=== PATIENT | female | born 1970 | race Caucasian/White ===

== ENCOUNTER → 2017-02-06 | Outpatient (CLI) | payer OTHER ==
[2017-02-06 08:58] LABS: BLOOD, URINE NEG (NEG); GLUCOSE,URINE NEG (NEG); KETONE, URINE NEG (NEG); MUCUS URINE FEW /lpf (OCC); NITRITE,URINE NEG (NEG); SQUAMOUS EPITHELIAL CELL URINE 1 /hpf (0-5); URINE COLOR LIGHT-YELLOW (YELLW/STRAW)
[2017-02-06 09:08] LABS: AUTOMATED NEUTROPHIL # 1.9 TH/MM3 (1.8-7.7); EOSINOPHIL # 0.1 TH/MM3 (0-0.4); HEMATOCRIT 38.3 % (35.0-46.0); HEMO FLAGS DIFF FINAL; LYMPH % 31.5 % (9.0-44.0); LYMPHOCYTE # 1.1 TH/MM3 (1.0-4.8); MEAN CELL VOLUME 90.3 FL (80.0-100.0); MEAN CORPUSCULAR HEMOGLOBIN 30.4 PG (27.0-34.0); MEAN CORPUSCULAR HGB CONC 33.7 % (32.0-36.0); MONO % 7.3 % (0.0-8.0); NEUT % 57.2 % (16.0-70.0); PLATELET COUNT 143 TH/MM3 (150-450); RED BLOOD COUNT 4.24 MIL/MM3 (4.00-5.30); WHITE BLOOD COUNT 3.4 TH/MM3 (4.0-11.0)
[2017-02-06 09:23] LABS: ANION GAP 5 MEQ/L (5-15); BICARBONATE 28.2 MEQ/L (21.0-32.0); CHLORIDE 104 MEQ/L (98-107); GLOMERULAR FILTRATION RATE 70 ML/MIN (>89); GLUCOSE,FASTING 85 MG/DL (74-99); POTASSIUM 4.1 MEQ/L (3.5-5.1); SODIUM (NA) 137 MEQ/L (136-145)
[2017-02-06 10:12] LABS: ALKALINE PHOSPHATASE 47 U/L (45-117); ALT (GPT) 16 U/L (10-53); HDL CHOLESTEROL 77.5 MG/DL (40.0-60.0); LDL CHOLESTEROL 76 MG/DL (0-99); TOTAL BILIRUBIN ADULT 0.7 MG/DL (0.2-1.0); TRANSFERRIN IRON PROFILE 256 MG/DL (200-360)
[2017-02-06 10:24] LABS: AST (GOT) 10 U/L (15-37); BLOOD UREA NITROGEN 20 MG/DL (7-18)
== END ==
LOC: CLAB 08:14
PROVIDERS: ATTEND Family Medicine
DX: R31.29 Other microscopic hematuria (principal)
CPT/HCPCS: 36415; 80053; 80061; 81001; 82607; 82746; 83540; 83550; 84443; 85025

== ENCOUNTER → 2017-02-15 | Outpatient (CLI) | payer OTHER ==
[2017-02-15 11:39] LABS: AUTOMATED NEUTROPHIL # 3.3 TH/MM3 (1.8-7.7); BASOPHIL % 0.9 % (0.0-2.0); EOSINOPHIL # 0.1 TH/MM3 (0-0.4); EOSINOPHIL % 1.4 % (0.0-4.0); HEMATOCRIT 37.6 % (35.0-46.0); HEMO FLAGS DIFF FINAL; LYMPH % 24.7 % (9.0-44.0); LYMPHOCYTE # 1.2 TH/MM3 (1.0-4.8); MEAN CELL VOLUME 91.9 FL (80.0-100.0); MEAN CORPUSCULAR HEMOGLOBIN 30.5 PG (27.0-34.0); MEAN CORPUSCULAR HGB CONC 33.2 % (32.0-36.0); MONO % 6.7 % (0.0-8.0); NEUT % 66.3 % (16.0-70.0); PLATELET COUNT 138 TH/MM3 (150-450); RED BLOOD COUNT 4.09 MIL/MM3 (4.00-5.30); WHITE BLOOD COUNT 4.9 TH/MM3 (4.0-11.0)
== END ==
LOC: CLAB 11:14
PROVIDERS: ATTEND Family Medicine
DX: R89.9 Unspecified abnormal finding in specimens from other organs, systems and tissues (principal); R53.83 Other fatigue
CPT/HCPCS: 36415; 85025

== ENCOUNTER 2017-05-08 07:02 | Emergency (ER) | payer OTHER ==
[~2017-05-08] VITALS: Ht 175.3 cm; Wt 50.0 kg
[2017-05-08 07:04] VITALS: BP 127/78; PULSE 66; RESP 19; TEMP 97.8; O2SAT 100
[2017-05-08] MEDS ORDERED: SODIUM CHLOR 0.9% 1000 ML INJ 1,000 ML IV SCH (07:19)
[2017-05-08 07:25] VITALS: BP 154/88; PULSE 72; RESP 16; TEMP 97.6; O2SAT 99
[2017-05-08] MEDS ORDERED: MORPHINE SULFATE 4 MG/ML INJ IV PUSH ONE ×2 (07:30→08:00)
[2017-05-08] MEDS ORDERED: ONDANSETRON HCL 4 MG/2 ML VIAL IVP ONE (07:30)
[2017-05-08] MEDS ORDERED: SODIUM CHLORIDE 0.9% FLUSH 10 ML FLUSH IV FLUSH PRN (07:30)
[2017-05-08] MEDS ORDERED: KETOROLAC TROMETHAMINE 30 MG/ML (IVP) VIAL IVP ONE (07:30)
[2017-05-08 07:41] LABS: AUTOMATED NEUTROPHIL # 4.6 TH/MM3 (1.8-7.7); BASOPHIL % 0.6 % (0.0-2.0); EOSINOPHIL # 0.1 TH/MM3 (0-0.4); EOSINOPHIL % 1.5 % (0.0-4.0); HEMATOCRIT 39.6 % (35.0-46.0); HEMO FLAGS DIFF FINAL; LYMPH % 30.8 % (9.0-44.0); LYMPHOCYTE # 2.4 TH/MM3 (1.0-4.8); MEAN CELL VOLUME 89.7 FL (80.0-100.0); MEAN CORPUSCULAR HEMOGLOBIN 30.4 PG (27.0-34.0); MEAN CORPUSCULAR HGB CONC 33.9 % (32.0-36.0); MONO % 6.8 % (0.0-8.0); NEUT % 60.3 % (16.0-70.0); PLATELET COUNT 170 TH/MM3 (150-450); RED BLOOD COUNT 4.41 MIL/MM3 (4.00-5.30); RED CELL DISTRIBUTION WIDTH 13.6 % (11.6-17.2); WHITE BLOOD COUNT 7.7 TH/MM3 (4.0-11.0)
--- NOTE | 2017-05-08 07:45 | PD ---
HPI Chief Complaint: Flank/Kidney Pain Time Seen by Provider: 07:16 Travel History International Travel<30 days: No Contact w/Intl Traveler<30days: No Traveled to known affect area: No History of Present Illness HPI So 46-year-old woman who presents to the emergency department complaining of severe right flank pain. She reports that she had a little bit of right flank pain yesterday, and this morning started to develop severe right flank pain radiating into her groin associated with a little bit of polyuria. She denies any history of previous similar symptoms. She describes the pain is excruciating and persistent. She's had salpingectomy in the past reportedly for reduce risk of ovarian CVA. She still has her ovaries. She's also had an umbilical hernia repair in the past. She has regular menstrual cycles and is due to start her period shortly. She denies any other new or worsening symptoms. History Past Medical History Medical History: Denies Significant Hx : 2 Para: 2 Social History Alcohol Use: No Tobacco Use: No Allergies-Medications (Allergen,Severity, Reaction): Coded Allergies: No Known Allergies (Verified Adverse Reaction, Unknown, 05/08/17) Reported Meds & Prescriptions Reported Meds & Active Scripts Active No Active Prescriptions or Reported Medications Review of Systems Except as stated in HPI: all other systems reviewed are Neg Physical Exam Narrative GENERAL: 46 year-old woman, writhing in the bed. In obvious pain. SKIN: Focused skin assessment warm/dry. HEAD: Atraumatic. Normocephalic. EYES: Pupils equal and round. No scleral icterus. No injection or drainage. ENT: No nasal bleeding or discharge. Mucous membranes pink and moist. NECK: Trachea midline. No JVD. CARDIOVASCULAR: Regular rate and rhythm. No murmur appreciated. RESPIRATORY: No accessory muscle use. Clear to auscultation. Breath sounds equal bilaterally. GASTROINTESTINAL: Abdomen is flat and soft. Mild diffuse more right sided tenderness but no rebound or guarding. MUSCULOSKELETAL: No obvious deformities. No edema. NEUROLOGICAL: Awake and alert. No obvious cranial nerve deficits. Motor grossly within normal limits. Normal speech. Data Data Last Documented VS Vital Signs Date Time Temp Pulse Resp B/P (MAP) Pulse Ox O2 Delivery O2 Flow Rate FiO2 05/08/17 08:33 52 18 142/77 (98) 100 Room Air 05/08/17 07:25 97.6 Orders Orders Complete Blood Count With Diff (05/08/17 07:19) Comprehensive Metabolic Panel (05/08/17 07:19) Lipase (05/08/17 07:19) Urinalysis - C+S If Indicated (05/08/17 07:19) Iv Access Insert/Monitor (05/08/17 07:19) Ecg Monitoring (05/08/17 07:19) Oximetry (05/08/17 07:19) Morphine Inj (Morphine Inj) (05/08/17 07:30) Ondansetron Inj (Zofran Inj) (05/08/17 07:30) Sodium Chlor 0.9% 1000 Ml Inj (Ns 1000 M (05/08/17 07:19) Sodium Chloride 0.9% Flush (Ns Flush) (05/08/17 07:30) Ketorolac Inj (Toradol Inj) (05/08/17 07:30) Ed Urine Pregnancytest Poc (05/08/17 07:19) Ct Abd/Pel W/O Iv Contrast (05/08/17 ) Morphine Inj (Morphine Inj) (05/08/17 08:00) Labs Laboratory Tests Test 05/08/17 07:20 05/08/17 07:25 White Blood Count 7.7 TH/MM3 Red Blood Count 4.41 MIL/MM3 Hemoglobin 13.4 GM/DL Hematocrit 39.6 % Mean Corpuscular Volume 89.7 FL Mean Corpuscular Hemoglobin 30.4 PG Mean Corpuscular Hemoglobin Concent 33.9 % Red Cell Distribution Width 13.6 % Platelet Count 170 TH/MM3 Mean Platelet Volume 9.4 FL Neutrophils (%) (Auto) 60.3 % Lymphocytes (%) (Auto) 30.8 % Monocytes (%) (Auto) 6.8 % Eosinophils (%) (Auto) 1.5 % Basophils (%) (Auto) 0.6 % Neutrophils # (Auto) 4.6 TH/MM3 Lymphocytes # (Auto) 2.4 TH/MM3 Monocytes # (Auto) 0.5 TH/MM3 Eosinophils # (Auto) 0.1 TH/MM3 Basophils # (Auto) 0.0 TH/MM3 CBC Comment DIFF FINAL Differential Comment Blood Urea Nitrogen 20 MG/DL Creatinine 1.07 MG/DL Random Glucose 142 MG/DL Total Protein 7.2 GM/DL Albumin 3.7 GM/DL Calcium Level 8.7 MG/DL Alkaline Phosphatase 46 U/L Aspartate Amino Transf (AST/SGOT) 46 U/L Alanine Aminotransferase (ALT/SGPT) 29 U/L Total Bilirubin 0.9 MG/DL Sodium Level 137 MEQ/L Potassium Level 5.3 MEQ/L Chloride Level 105 MEQ/L Carbon Dioxide Level 23.2 MEQ/L Anion Gap 9 MEQ/L Estimat Glomerular Filtration Rate 55 ML/MIN Lipase 145 U/L Urine Color YELLOW Urine Turbidity CLEAR Urine pH 6.0 Urine Specific [place] 1.027 Urine Protein 30 mg/dL Urine Glucose (UA) NEG mg/dL Urine Ketones 10 mg/dL Urine Occult Blood LARGE Urine Nitrite NEG Urine Bilirubin NEG Urine Urobilinogen LESS THAN 2.0 MG/DL Urine Leukocyte Esterase NEG Urine RBC /hpf Urine WBC 1 /hpf Urine Squamous Epithelial Cells <1 /hpf Urine Transitional Epithelial Cells <1 /hpf Urine Bacteria FEW /hpf Urine Hyaline Casts 1 /lpf Urine Mucus MANY /lpf Microscopic Urinalysis Comment CULT NOT INDICATED MDM Medical Decision Making Medical Screen Exam Complete: Yes Emergency Medical Condition: Yes Interpretation(s) LABS: CBC is unremarkable. CMP is overall unremarkable. BUN and creatinine is a little bit elevated. Elevated potassium likely due to hemolysis. UA is significant for marked hematuria CT abdomen and pelvis, 4 x 3 mm potential stone in the right pelvis. Differential Diagnosis Renal lithiasis, ovarian torsion, pyelonephritis, PID or pelvic infection, other Narrative Course Medical decision making INITIAL: 46 year-old woman riding right sided flank pain suggestive of likely renal lithiasis. Ovarian torsion could've a similar appearance. Patient looks obviously uncomfortable but nontoxic. We'll check labs, urine, imaging, reassess. Diagnosis Primary Impression: Ureterolithiasis Additional Instructions: Take Naprosyn as prescribed. Take Lortab as needed. Use Zofran if needed for nausea or vomiting. Follow-up with her primary doctor for not completely well the next 3-5 days. Return to the ER for any worsening abdominal pain, fevers, vomiting, or any other new or worsening symptoms. Med/Other Pt SpecificInfo: Prescription(s) given Scripts Ondansetron Odt (Ondansetron Odt) 4 Mg Tab 4 MG SL Q8HR Y for Nausea/Vomiting, #10 TAB 0 Refills Prov: Geoffrey Crews MD 05/08/17 Hydrocodone-Acetaminophen (Lortab) 5-325 Mg Tab 1-2 TAB PO Q6H Y for PAIN, #20 TAB 0 Refills Prov: Geoffrey Crews MD 05/08/17 Naproxen (Naproxen) 500 Mg Tab 500 MG PO BID, #20 TAB 0 Refills Prov: Geoffrey Crews MD 05/08/17 Disposition: 01 DISCHARGE HOME Condition: Stable Geoffrey Crews MD May 08, 2017 07:45
[2017-05-08 07:46] LABS: BLOOD, URINE LARGE (NEG); GLUCOSE,URINE NEG (NEG); HYALINE CAST, URINE 1 /lpf (RARE); KETONE, URINE 10 mg/dL (NEG); MUCUS URINE MANY /lpf (OCC); NITRITE,URINE NEG (NEG); SQUAMOUS EPITHELIAL CELL URINE <1 /hpf (0-5); TRANSITIONAL EPI CELLS, URINE <1 /hpf; URINE COLOR YELLOW (YELLW/STRAW)
[2017-05-08 07:48] LABS: BACTERIA, URINE FEW /hpf; COMMENT (UR) CULT NOT INDICATED; CULTURE IF INDICATED CULT NOT INDICATED
[2017-05-08 08:04] LABS: ALKALINE PHOSPHATASE 46 U/L (45-117); TOTAL BILIRUBIN ADULT 0.9 MG/DL (0.2-1.0)
[2017-05-08 08:22] LABS: ALT (GPT) 29 U/L (10-53); ANION GAP 9 MEQ/L (5-15); AST (GOT) 46 U/L (15-37); BICARBONATE 23.2 MEQ/L (21.0-32.0); BLOOD UREA NITROGEN 20 MG/DL (7-18); CHLORIDE 105 MEQ/L (98-107); GLOMERULAR FILTRATION RATE 55 ML/MIN (>89); SODIUM (NA) 137 MEQ/L (136-145)
[2017-05-08 08:24] LABS: POTASSIUM 5.3 MEQ/L (3.5-5.1)
[2017-05-08 08:33] VITALS: BP 142/77; PULSE 52; RESP 18; O2SAT 100
--- NOTE | 2017-05-08 09:16 | RADRPT ---
EXAM DATE/TIME: 05/08/2017 08:03 [facility] COMPARISON: No previous studies available for comparison. INDICATIONS : Right flank and pelvic pain for 2 days ORAL CONTRAST: No oral contrast ingested. RADIATION DOSE: 6.97 CTDIvol (mGy) MEDICAL HISTORY : None SURGICAL HISTORY : None. ENCOUNTER: Initial ACUITY: 2 days PAIN SCALE: 6/10 LOCATION: Right flank TECHNIQUE: Volumetric scanning of the abdomen and pelvis was performed. Using automated exposure control and ad justment of the mA and/or kV according to patient size, radiation dose was kept as low as reasonably achievable to obtain optimal diagnostic quality images. DICOM format image data is available electro nically for review and comparison. FINDINGS: LOWER LUNGS: The visualized lower lungs are clear. Breast implants are present. LIVER: Homogeneous density without lesion identified on this noncontrast examination. There is no dilation of the biliary tree. No calcified gallstones. SPLEEN: Normal size without lesion. PANCREAS: No definite abnormality is visualized. KIDNEYS: Normal in size and shape. There is no mass, stone, or hydronephrosis. There is a 4 x 3 mm ovoid dens ity/calcification in the right pelvis near the expected location of the distal right ureter. Given th e paucity of intra-abdominal and pelvic fat, I am unable to follow the course of the ureters. ADRENAL GLANDS: No definite abnormality is visualized. VASCULAR: There is no aortic aneurysm. BOWEL/MESENTERY: The stomach, small bowel, and colon demonstrate no acute abnormality. There is no free intraperitone al air or fluid. ABDOMINAL WALL: Within normal limits. RETROPERITONEUM: There is no lymphadenopathy. BLADDER: No wall thickening or mass. REPRODUCTIVE: Within normal limits. INGUINAL: There is no lymphadenopathy or hernia. MUSCULOSKELETAL: No acute abnormality. CONCLUSION: 1. There is a 4 x 3 mm potential stone in the right pelvis which could be within the distal right ure ter just proximal to the ureterovesical junction. No right hydronephrosis is present however. Given t he paucity of intra-abdominal and pelvic fat I am unable to visualize the ureter but the finding is s uspicious for a distal right ureteral stone. 2. No other abnormality is identified. Jace Walter MD on May 08, 2017 at 9:08 Board Certified Radiologist. This report was verified electronically.
[2017-05-08] MEDS ORDERED: ONDA4TAB7 SL (09:50)
[2017-05-08] MEDS ORDERED: NAPR500T2 PO (09:50)
[2017-05-08] MEDS ORDERED: HYDR-3533 PO (09:50)
[2017-05-08 10:16] VITALS: BP 99/51; PULSE 57; RESP 18; O2SAT 98
== END 2017-05-08 10:25 | disposition home or self-care (01) ==
LOC: NEPC 07:02
DX: N20.1 Calculus of ureter (principal)
CPT/HCPCS: 74176; 80053; 81001; 83690; 84703; 85025; 96361; 96374; 96375; 96376; 99285; J1885; J2270; J2405; J7030

== ENCOUNTER 2017-05-14 07:05 | Emergency (ER) | payer OTHER ==
[~2017-05-14] VITALS: Ht 160 cm; Wt 50.0 kg
[~2017-05-14 07:05] MED LIST: HYDR-3533 PO; NAPR500T2 PO; ONDA4TAB7 SL
[2017-05-14 07:11] VITALS: BP 156/88; PULSE 82; RESP 26; TEMP 98.4; O2SAT 98
[2017-05-14] MEDS ORDERED: SODIUM CHLOR 0.9% 1000 ML INJ 1,000 ML IV SCH (07:23)
--- NOTE | 2017-05-14 07:28 | PD ---
HPI Chief Complaint: Flank/Kidney Pain Time Seen by Provider: 07:15 Travel History International Travel<30 days: No Contact w/Intl Traveler<30days: No Traveled to known affect area: No History of Present Illness HPI The patient is a 46-year-old female who presents to the emergency department for right flank pain that is associated with nausea, vomiting, pain is starts in the right mid back and radiates to the right lower quadrant of the abdomen. The patient has similar pain one week ago was evaluated in the emergency department where she had a CT performed which revealed possible 4 x 3 mm stone in the distal right ureter. The patient's pain did improve, however, returned once again this morning. The patient is unsure if she has any hematuria and she is currently finishing her menstrual cycle, however, does note bright red blood that appears to be in the urine. She denies any vaginal discharge. She denies any fever, chills, or sweats. She does have a history of previous tubal ligation, section, and periumbilical hernia repair. She denies any vaginal discharge, dysuria, frequency, or urgency. She is unsure if she passed a stone within the last week. Symptoms are moderate, possibly exacerbated by underlying kidney stone, and there are no current alleviating factors. PFSH Past Medical History Cancer: No Cardiovascular Problems: No Diabetes: No Endocrine: No Genitourinary: No Hepatitis: No Hiatal Hernia: No Immune Disorder: No Musculoskeletal: No Neurologic: No Psychiatric: No Reproductive: No Respiratory: No Thyroid Disease: No Tetanus Vaccination: < 5 Years Influenza Vaccination: Yes ?: Not LMP: 05/09/17 : 2 Para: 2 Tubal Ligation: Yes Past Surgical History AICD: No Section: Yes Gynecologic Surgery: Yes (2 C SECTION , HERNIA REPAIR) Pacemaker: No Other Surgery: Yes (BREAST AUGMENTATION ) Social History Alcohol Use: No Tobacco Use: No Substance Use: No Allergies-Medications (Allergen,Severity, Reaction): Coded Allergies: No Known Allergies (Verified Adverse Reaction, Unknown, 05/08/17) Reported Meds & Prescriptions Reported Meds & Active Scripts Active Ondansetron Odt 4 Mg Tab 4 Mg SL Q8HR PRN Lortab (Hydrocodone-Acetaminophen) 5-325 Mg Tab 1-2 Tab PO Q6H PRN Naproxen 500 Mg Tab 500 Mg PO BID Review of Systems Except as stated in HPI: all other systems reviewed are Neg General / Constitutional: No: Fever Cardiovascular: No: Chest Pain or Discomfort Respiratory: No: Shortness of Breath Gastrointestinal: Positive: Nausea, Vomiting, Abdominal Pain, No: Diarrhea Genitourinary: Positive: Hematuria, Flank Pain Skin: No Rash Physical Exam Narrative GENERAL: Awake, alert, pleasant 46-year-old female appears her stated age and appears in moderate discomfort. SKIN: Focused skin assessment warm/dry. HEAD: Atraumatic. Normocephalic. EYES: Pupils equal and round. No scleral icterus. No injection or drainage. ENT: No nasal bleeding or discharge. Mucous membranes pink and moist. NECK: Trachea midline. No JVD. CARDIOVASCULAR: Regular rate and rhythm. No murmur appreciated. RESPIRATORY: No accessory muscle use. Clear to auscultation. Breath sounds equal bilaterally. GASTROINTESTINAL: Abdomen soft, mild suprapubic tenderness. Back: Right CVA tenderness. MUSCULOSKELETAL: No obvious deformities. No clubbing. No cyanosis. No edema. NEUROLOGICAL: Awake and alert. No obvious cranial nerve deficits. Motor grossly within normal limits. Normal speech. PSYCHIATRIC: Appropriate mood and affect; insight and judgment normal. Data Data Last Documented VS Vital Signs Date Time Temp Pulse Resp B/P (MAP) Pulse Ox O2 Delivery O2 Flow Rate FiO2 05/14/17 09:36 50 20 122/77 (92) 99 Room Air 05/14/17 07:11 98.4 Orders Orders Complete Blood Count With Diff (05/14/17 07:23) Comprehensive Metabolic Panel (05/14/17 07:23) Urinalysis - C+S If Indicated (05/14/17 07:23) Iv Access Insert/Monitor (05/14/17 07:23) Ecg Monitoring (05/14/17 07:23) Oximetry (05/14/17 07:23) Morphine Inj (Morphine Inj) (05/14/17 07:30) Ondansetron Inj (Zofran Inj) (05/14/17 07:30) Sodium Chlor 0.9% 1000 Ml Inj (Ns 1000 M (05/14/17 07:23) Sodium Chloride 0.9% Flush (Ns Flush) (05/14/17 07:30) Abdomen, Kub Only (05/14/17 07:23) Ketorolac Inj (Toradol Inj) (05/14/17 07:30) Ed Urine Pregnancytest Poc (05/14/17 07:23) Ct Abd/Pel W/O Iv Contrast (05/14/17 ) Hydromorphone Pf Inj (Dilaudid Pf Inj) (05/14/17 09:00) Ondansetron Inj (Zofran Inj) (05/14/17 09:30) Labs Laboratory Tests Test 05/14/17 07:30 White Blood Count 5.9 TH/MM3 Red Blood Count 4.27 MIL/MM3 Hemoglobin 13.1 GM/DL Hematocrit 38.6 % Mean Corpuscular Volume 90.5 FL Mean Corpuscular Hemoglobin 30.7 PG Mean Corpuscular Hemoglobin Concent 33.9 % Red Cell Distribution Width 13.6 % Platelet Count 182 TH/MM3 Mean Platelet Volume 8.9 FL Neutrophils (%) (Auto) 70.0 % Lymphocytes (%) (Auto) 20.7 % Monocytes (%) (Auto) 7.2 % Eosinophils (%) (Auto) 1.5 % Basophils (%) (Auto) 0.6 % Neutrophils # (Auto) 4.1 TH/MM3 Lymphocytes # (Auto) 1.2 TH/MM3 Monocytes # (Auto) 0.4 TH/MM3 Eosinophils # (Auto) 0.1 TH/MM3 Basophils # (Auto) 0.0 TH/MM3 CBC Comment DIFF FINAL Differential Comment Urine Color LIGHT-YELLOW Urine Turbidity CLEAR Urine pH 7.5 Urine Specific [place] 1.006 Urine Protein NEG mg/dL Urine Glucose (UA) NEG mg/dL Urine Ketones NEG mg/dL Urine Occult Blood NEG Urine Nitrite NEG Urine Bilirubin NEG Urine Urobilinogen LESS THAN 2.0 MG/DL Urine Leukocyte Esterase NEG Urine WBC LESS THAN 1 /hpf Microscopic Urinalysis Comment CULT NOT INDICATED Blood Urea Nitrogen 18 MG/DL Creatinine 1.14 MG/DL Random Glucose 98 MG/DL Total Protein 7.3 GM/DL Albumin 4.4 GM/DL Calcium Level 8.9 MG/DL Alkaline Phosphatase 47 U/L Aspartate Amino Transf (AST/SGOT) 29 U/L Alanine Aminotransferase (ALT/SGPT) 43 U/L Total Bilirubin 0.7 MG/DL Sodium Level 138 MEQ/L Potassium Level 3.9 MEQ/L Chloride Level 104 MEQ/L Carbon Dioxide Level 26.3 MEQ/L Anion Gap 8 MEQ/L Estimat Glomerular Filtration Rate 52 ML/MIN MDM Medical Decision Making Medical Screen Exam Complete: Yes Emergency Medical Condition: Yes Medical Record Reviewed: Yes Interpretation(s) KUB reveals normal examination Laboratory Tests Test 05/14/17 07:30 White Blood Count 5.9 TH/MM3 Red Blood Count 4.27 MIL/MM3 Hemoglobin 13.1 GM/DL Hematocrit 38.6 % Mean Corpuscular Volume 90.5 FL Mean Corpuscular Hemoglobin 30.7 PG Mean Corpuscular Hemoglobin Concent 33.9 % Red Cell Distribution Width 13.6 % Platelet Count 182 TH/MM3 Mean Platelet Volume 8.9 FL Neutrophils (%) (Auto) 70.0 % Lymphocytes (%) (Auto) 20.7 % Monocytes (%) (Auto) 7.2 % Eosinophils (%) (Auto) 1.5 % Basophils (%) (Auto) 0.6 % Neutrophils # (Auto) 4.1 TH/MM3 Lymphocytes # (Auto) 1.2 TH/MM3 Monocytes # (Auto) 0.4 TH/MM3 Eosinophils # (Auto) 0.1 TH/MM3 Basophils # (Auto) 0.0 TH/MM3 CBC Comment DIFF FINAL Differential Comment Urine Color LIGHT-YELLOW Urine Turbidity CLEAR Urine pH 7.5 Urine Specific [place] 1.006 Urine Protein NEG mg/dL Urine Glucose (UA) NEG mg/dL Urine Ketones NEG mg/dL Urine Occult Blood NEG Urine Nitrite NEG Urine Bilirubin NEG Urine Urobilinogen LESS THAN 2.0 MG/DL Urine Leukocyte Esterase NEG Urine WBC LESS THAN 1 /hpf Microscopic Urinalysis Comment CULT NOT INDICATED Blood Urea Nitrogen 18 MG/DL Creatinine 1.14 MG/DL Random Glucose 98 MG/DL Total Protein 7.3 GM/DL Albumin 4.4 GM/DL Calcium Level 8.9 MG/DL Alkaline Phosphatase 47 U/L Aspartate Amino Transf (AST/SGOT) 29 U/L Alanine Aminotransferase (ALT/SGPT) 43 U/L Total Bilirubin 0.7 MG/DL Sodium Level 138 MEQ/L Potassium Level 3.9 MEQ/L Chloride Level 104 MEQ/L Carbon Dioxide Level 26.3 MEQ/L Anion Gap 8 MEQ/L Estimat Glomerular Filtration Rate 52 ML/MIN Last Impressions Abdomen X-Ray 05/14/17 0716 Signed Impressions: Service Date/Time: Sunday, May 14, 2017 07:40 - CONCLUSION: Normal examination. Ish Funez Jr., MD Abdomen/Pelvis CT 05/14/17 0000 Signed Impressions: Service Date/Time: Sunday, May 14, 2017 09:03 - CONCLUSION: Probable stone distal third left ureter similar to what was seen on 05/08/17 this is not appreciated on the KUB of 05/14/17, probably obscured by bowel. Uric acid type stones were visualized by CT but not I conventional radiography. Calvin Harrison MD FACR Differential Diagnosis Differential diagnosis includes nephrolithiasis, hydronephrosis, pyelonephritis , ovarian torsion, ovarian cyst, appendicitis, diverticulitis, UTI, ectopic . Narrative Course IV was established, labs are drawn and sent, and the patient was placed on cardiac telemetry monitoring and continuous pulse oximetry monitoring. The patient was administered morphine, Zofran, Toradol, and IV fluids. UA was sent to lab and bedside UA test was obtained. I reviewed the patient's EMR , her emergency department visit on May 08, 2017 revealed a possible 4 x 3 mm stone in the distal right ureter. KUB reveals normal examination. UA was unremarkable, no evidence of hematuria. Labs are otherwise unremarkable. Bedside UA test was negative. CT the abdomen and pelvis reveals a distal third right ureter stent. The patient required a second dose of pain medications, was administered Dilaudid. The patient will be placed on Flomax, [place], and ibuprofen. She will be advised to follow-up with urology. Diagnosis Primary Impression: Nephrolithiasis Referrals: Rakesh Deng DO call for appointment Patient Instructions: General Instructions Additional Instructions: Medications as directed. Follow-up with urology. Return if symptoms worsen or progress. Med/Other Pt SpecificInfo: Prescription(s) given Scripts Tamsulosin (Flomax) 0.4 Mg Cap 0.4 MG PO HS for Manage Prostate Problems, #7 CAP 0 Refills Prov: Evgeny Umanzor MD 05/14/17 Ibuprofen (Ibuprofen) 600 Mg Tab 600 MG PO Q6H Y for Pain/Inflammation, #20 TAB 0 Refills Prov: Evgeny Umanzor MD 05/14/17 Hydrocodone-Acetaminophen ([place]) 5 Mg-325 Mg Tab 1 TAB PO Q6H Y for PAIN, #20 TAB 0 Refills Prov: Evgeny Umanzor MD 05/14/17 Disposition: 01 DISCHARGE HOME Condition: Stable Evgeny Umanzor MD May 14, 2017 07:27
[2017-05-14] MEDS ORDERED: SODIUM CHLORIDE 0.9% FLUSH 10 ML FLUSH IV FLUSH PRN (07:30)
[2017-05-14] MEDS ORDERED: KETOROLAC TROMETHAMINE 30 MG/ML (IVP) VIAL IVP ONE (07:30)
[2017-05-14] MEDS ORDERED: MORPHINE SULFATE 4 MG/ML INJ IV PUSH ONE (07:30)
[2017-05-14] MEDS ORDERED: ONDANSETRON HCL 4 MG/2 ML VIAL IVP ONE (07:30)
[2017-05-14 07:39] VITALS: O2SAT 98
[2017-05-14 07:53] LABS: BLOOD, URINE NEG (NEG); GLUCOSE,URINE NEG (NEG); KETONE, URINE NEG (NEG); NITRITE,URINE NEG (NEG); PH, URINE 7.5 (5.0-8.5); URINE COLOR LIGHT-YELLOW (YELLW/STRAW)
[2017-05-14 07:54] LABS: COMMENT (UR) CULT NOT INDICATED; CULTURE IF INDICATED CULT NOT INDICATED
--- NOTE | 2017-05-14 07:57 | RADRPT ---
EXAM DATE/TIME: 05/14/2017 07:40 [facility] COMPARISON: CT ABDOMEN & PELVIS W/O CONTRAST, May 08, 2017, 8:03. INDICATIONS : Right side kidney stone, low back pain. MEDICAL HISTORY : None. SURGICAL HISTORY : None. ENCOUNTER: Initial ACUITY: 1 week PAIN SCORE: 10/10 LOCATION: Right abdomen. FINDINGS: Supine view of the abdomen was performed. The abdominal bowel gas pattern is normal. No abnormal ma sses, calcifications, or organomegaly is seen. In particular no discernible renal or ureteral stone. The osseous structures are unremarkable. CONCLUSION: Normal examination. Ish Funez Jr., MD on May 14, 2017 at 7:53 Board Certified Radiologist. This report was verified electronically.
[2017-05-14 07:58] LABS: AUTOMATED NEUTROPHIL # 4.1 TH/MM3 (1.8-7.7); BASOPHIL % 0.6 % (0.0-2.0); EOSINOPHIL # 0.1 TH/MM3 (0-0.4); EOSINOPHIL % 1.5 % (0.0-4.0); HEMATOCRIT 38.6 % (35.0-46.0); HEMO FLAGS DIFF FINAL; LYMPH % 20.7 % (9.0-44.0); LYMPHOCYTE # 1.2 TH/MM3 (1.0-4.8); MEAN CELL VOLUME 90.5 FL (80.0-100.0); MEAN CORPUSCULAR HEMOGLOBIN 30.7 PG (27.0-34.0); MEAN CORPUSCULAR HGB CONC 33.9 % (32.0-36.0); MONO % 7.2 % (0.0-8.0); PLATELET COUNT 182 TH/MM3 (150-450); RED BLOOD COUNT 4.27 MIL/MM3 (4.00-5.30); RED CELL DISTRIBUTION WIDTH 13.6 % (11.6-17.2); WHITE BLOOD COUNT 5.9 TH/MM3 (4.0-11.0)
[2017-05-14 08:07] LABS: ALT (GPT) 43 U/L (10-53); ANION GAP 8 MEQ/L (5-15); AST (GOT) 29 U/L (15-37); BICARBONATE 26.3 MEQ/L (21.0-32.0); BLOOD UREA NITROGEN 18 MG/DL (7-18); CHLORIDE 104 MEQ/L (98-107); GLOMERULAR FILTRATION RATE 52 ML/MIN (>89); POTASSIUM 3.9 MEQ/L (3.5-5.1); SODIUM (NA) 138 MEQ/L (136-145)
[2017-05-14 08:09] LABS: ALKALINE PHOSPHATASE 47 U/L (45-117); TOTAL BILIRUBIN ADULT 0.7 MG/DL (0.2-1.0)
[2017-05-14] MEDS ORDERED: HYDROmorphone HCL PF 0.5 MG/0.5 ML SYRINGE IV PUSH ONE (09:00)
--- NOTE | 2017-05-14 09:23 | RADRPT ---
EXAM DATE/TIME: 05/14/2017 09:03 [facility] COMPARISON: ABDOMEN KUB ONLY, May 14, 2017, 7:40. CT ABDOMEN & PELVIS W/O CONTRAST, May 08, 2017, 8:03 . INDICATIONS : Right flank pain ORAL CONTRAST: No oral contrast ingested. RADIATION DOSE: 3.74 CTDIvol (mGy) MEDICAL HISTORY : Renal calculi. SURGICAL HISTORY : section. Tubal ligation. ENCOUNTER: Initial ACUITY: 1 day PAIN SCALE: 7/10 LOCATION: Right flank TECHNIQUE: Volumetric scanning of the abdomen and pelvis was performed. Using automated exposure control and ad justment of the mA and/or kV according to patient size, radiation dose was kept as low as reasonably achievable to obtain optimal diagnostic quality images. DICOM format image data is available electro nically for review and comparison. FINDINGS: Again seen is the potential for millimeter stone in the distal third of the right ureter similar to w hat was described on 05/08/17. Breast implants are noted. The portion of the liver and spleen identified are unremarkable. There n o calcifications in either kidney. The upper abdominal contents are unremarkable. In the pelvis there is no free fluid. Lack of intravenous contrast makes detection of subtle pyelonephritis difficult. CONCLUSION: Probable stone distal third left ureter similar to what was seen on 05/08/17 this is n ot appreciated on the KUB of 05/14/17, probably obscured by bowel. Uric acid type stones were visual ized by CT but not I conventional radiography. Calvin Harrison MD FACR on May 14, 2017 at 9:17 Board Certified Radiologist. This report was verified electronically.
[2017-05-14] MEDS ORDERED: ONDANSETRON HCL 4 MG/2 ML VIAL IV PUSH ONE (09:30)
[2017-05-14 09:36] VITALS: BP 122/77; PULSE 50; RESP 20; O2SAT 99
[2017-05-14 09:55] VITALS: RESP 18
[2017-05-14] MEDS ORDERED: IBUP-232 PO (10:00)
[2017-05-14] MEDS ORDERED: NORC5TAB PO (10:00)
[2017-05-14] MEDS ORDERED: TAMS5CAP PO (10:00)
== END 2017-05-14 10:37 | disposition home or self-care (01) ==
LOC: NEPE 07:05
DX: N20.0 Calculus of kidney (principal); R11.2 Nausea with vomiting, unspecified
CPT/HCPCS: 74000; 74176; 80053; 81001; 84703; 85025; 96361; 96374; 96375; 96376; 99285; J1170; J1885; J2270; J2405; J7030

== ENCOUNTER → 2017-10-08 | Outpatient (CLI) | payer OTHER ==
[~2017-10-08] MED LIST changes: -HYDR-3533 PO; +IBUP-232 PO; -NAPR500T2 PO; -ONDA4TAB7 SL
[2017-10-08 07:48] LABS: AUTOMATED NEUTROPHIL # 3.4 TH/MM3 (1.8-7.7); BASOPHIL % 0.6 % (0.0-2.0); EOSINOPHIL # 0.1 TH/MM3 (0-0.4); EOSINOPHIL % 2.1 % (0.0-4.0); HEMATOCRIT 40.3 % (35.0-46.0); HEMOGLOBIN 13.6 GM/DL (11.6-15.3); LYMPH % 19.4 % (9.0-44.0); MEAN CELL VOLUME 90.3 FL (80.0-100.0); MEAN CORPUSCULAR HEMOGLOBIN 30.4 PG (27.0-34.0); MEAN CORPUSCULAR HGB CONC 33.7 % (32.0-36.0); MEAN PLATELET VOLUME 9.3 FL (7.0-11.0); MONO % 8.3 % (0.0-8.0); MONOCYTE # 0.4 TH/MM3 (0-0.9); NEUT % 69.6 % (16.0-70.0); PLATELET COUNT 158 TH/MM3 (150-450); RED BLOOD COUNT 4.47 MIL/MM3 (4.00-5.30); RED CELL DISTRIBUTION WIDTH 13.1 % (11.6-17.2); WHITE BLOOD COUNT 4.9 TH/MM3 (4.0-11.0)
[2017-10-08 08:08] LABS: ALBUMIN 3.9 GM/DL (3.4-5.0); ALT (GPT) 23 U/L (10-53); AST (GOT) 18 U/L (15-37); BICARBONATE 26.4 MEQ/L (21.0-32.0); BLOOD UREA NITROGEN 23 MG/DL (7-18); CHLORIDE 106 MEQ/L (98-107); CREATININE 1.01 MG/DL (0.50-1.00); GLOMERULAR FILTRATION RATE 59 ML/MIN (>89); GLUCOSE,FASTING 92 MG/DL (74-99); SODIUM (NA) 138 MEQ/L (136-145)
[2017-10-08 08:32] LABS: ALKALINE PHOSPHATASE 47 U/L (45-117); FERRITIN 13 NG/ML (8-252); IRON (FE) 154 MCG/DL (50-170); TOTAL BILIRUBIN ADULT 0.9 MG/DL (0.2-1.0); TOTAL IRON BINDING CAPACITY 416 MCG/DL (250-450); TOTAL PROTEIN 7.5 GM/DL (6.4-8.2)
== END ==
LOC: CLAB 07:06
PROVIDERS: ATTEND Obstetrics & Gynecology
DX: N92.0 Excessive and frequent menstruation with regular cycle (principal); R53.83 Other fatigue
CPT/HCPCS: 36415; 80053; 82607; 82652; 82728; 83540; 83550; 84443; 85025

== ENCOUNTER → 2017-12-28 | Outpatient (CLI) | payer OTHER | LOC: CLAB 12:05 | PROVIDERS: ATTEND Obstetrics & Gynecology | DX: Z11.3 Encounter for screening for infections with a predominantly sexual mode of transmission (principal) | CPT/HCPCS: 36415; 80074; 86592; 87389; G0475 ==